=== PATIENT | female | born 1955 | race Caucasian/White ===

== ENCOUNTER 2017-02-05 11:49 | Emergency (ER) | payer MEDICAID ==
[~2017-02-05] VITALS: Ht 160 cm; Wt 55.0 kg
[~2017-02-05 11:49] MED LIST: Folic Acid PO; LEVE1000 PO; Multivitamins,Ther W-Minerals PO; ONDA4TAB5 PO; TOPI100T9 PO
[2017-02-05 14:59] LABS: ALANINE AMINOTRANSFERASE 72 IU/L (13-61); ANION GAP 13; CALCIUM 8.6 mg/dL (8.5-10.1); CARBON DIOXIDE 24 mEq/L (21-32); CHLORIDE 108 mEq/L (98-107); INDEX HEMOLYSI 3 (1-3); INDEX ICTERIC 1 (1-4); INDEX LIPEMIC 1 (1-3); TROPONIN I < 0.02 ng/mL (0.00-0.04); UREA NITROGEN BLOOD 15 mg/dL (7-21); eGFR > 60 mL/min (>60)
[2017-02-05 23:04] LABS: BASOPHILS % 0.7 % (0.0-2.0); EOSINOPHILS % 3.8 % (0.0-5.0); HEMATOCRIT. 33.8 % (36.0-48.0); HEMOGLOBIN. 11.5 g/dL (12.0-16.0); LYMPHOCYTES % 29.5 % (20.0-50.0); MEAN CORPUSCULAR HEMOGLOBIN 30.2 pg (28.0-32.0); MEAN CORPUSCULAR HGB CONC 33.9 g/dL (31.0-37.0); MEAN CORPUSCULAR VOLUME 89.2 fL (81.0-99.0); MONOCYTES % 9.2 % (2.0-8.0); NEUTROPHILS % 56.8 % (40.0-76.0); RED BLOOD CELL COUNT 3.79 mill/uL (4.2-5.4); RED CELL DISTRIBUTION WIDTH 15.4 % (11.6-14.6); WHITE BLOOD COUNT 3.5 x1000/uL (4.5-11.0)
[2017-02-06 02:29] LABS: MEAN PLATELET VOLUME 9.7 fl (7.4-10.4)
[2017-02-06 15:31] VITALS: BP 152/77
[2017-02-09 11:56] LABS: PLATELET 44 x1000/uL (130-400)
== END 2017-02-06 16:49 | disposition left against medical advice (07) ==
LOC: ER 12:01
DX: R55 Syncope and collapse (principal); F20.9 Schizophrenia, unspecified
CPT/HCPCS: 36415; 80053; 84484; 85025; 93005; 99285; Z7610

== ENCOUNTER 2017-07-02 18:42 | Inpatient (IN) | payer OTHER ==
[~2017-07-02] VITALS: Ht 157.5 cm; Wt 68.0 kg
[~2017-07-02 18:42] MED LIST changes: +TOP100 PO; -TOPI100T9 PO
[2017-07-02 19:16] LABS: BASOPHILS % 0.9 % (0.0-2.0); EOSINOPHILS % 3.2 % (0.0-5.0); HEMOGLOBIN. 10.2 g/dL (12.0-16.0); LYMPHOCYTES % 22.9 % (20.0-50.0); MEAN CORPUSCULAR HEMOGLOBIN 29.8 pg (28.0-32.0); MEAN CORPUSCULAR VOLUME 87.8 fL (81.0-99.0); MONOCYTES % 11.8 % (2.0-8.0); NEUTROPHILS % 61.2 % (40.0-76.0); RED BLOOD CELL COUNT 3.42 mill/uL (4.2-5.4); RED CELL DISTRIBUTION WIDTH 15.9 % (11.6-14.6)
[2017-07-02 19:23] LABS: INR 1.3; PLATELET 45 x1000/uL (130-400); PROTHROMBIN TIME 13.1 sec (9.4-11.6)
[2017-07-02 19:31] LABS: AMMONIA 112 uMol/L (<32)
[2017-07-02 19:34] LABS: CARBON DIOXIDE 25 mEq/L (21-32); CHLORIDE 111 mEq/L (98-107)
[2017-07-02 19:48] LABS: PLATELET ESTIMATE MARKEDLY DECREASED
[2017-07-02] MEDS ORDERED: LACTULOSE 20G/30ML UDC PO ONE (20:30)
[2017-07-02] MEDS ORDERED: IPRATROPIUM/ALBUTEROL 0.5-3(2.5)MG/3ML NEB INH PRN (22:30)
[2017-07-02] MEDS ORDERED: NA PHOS,M-B/NA PHOS,DI-BA ENEMA 118ML PR PRN (22:30)
[2017-07-02] MEDS ORDERED: NITROGLYCERIN 0.4MG TABLET SL SL PRN (22:30)
[2017-07-02] MEDS ORDERED: GUAIFENESIN 200MG/10ML SUGAR FREE UDC PO PRN (22:30)
[2017-07-02] MEDS ORDERED: CLONIDINE 0.1MG TABLET PO PRN (22:30)
[2017-07-02] MEDS ORDERED: ACETAMINOPHEN 325MG TABLET PO PRN (22:30)
[2017-07-02] MEDS ORDERED: ONDANSETRON HCL 4MG/2ML VIAL IV PRN (22:30)
[2017-07-02] MEDS ORDERED: DOCUSATE SODIUM 100MG CAPSULE PO PRN (22:30)
[2017-07-02] MEDS ORDERED: MAGNESIUM/ALUMINUM HYDROXIDE/SIMETHICONE 30ML UDC PO PRN (22:30)
[2017-07-02 22:53] LABS: ETHANOL BLOOD < 10 mg/dL; HDL CHOLESTEROL 35 mg/dL (40-59); LDL CHOLESTEROL 28 mg/dL (5-100)
[2017-07-02] MEDS: LACTULOSE 20G/30ML UDC PO SCH (23:49)
[2017-07-03 00:15] VITALS: BP 118/52
[2017-07-03] MEDS ORDERED: ASPI-986 PO (00:31)
[2017-07-03] MEDS ORDERED: SIMV10TA6 PO (00:31)
[2017-07-03] MEDS ORDERED: LACT10SO6 PO (00:31)
[2017-07-03] MEDS ORDERED: INFLUENZA VIRUS VACCINE 0.5ML SYR IM ONE (01:15)
[2017-07-03] MEDS ORDERED: MVI, ADULT NO.1 10 ML, FOLIC ACID 1 MG, THIAMINE HCL 100 MG in SODIUM CHLORIDE 0.9% 1,0... IV NR ×4 (02:00)
[2017-07-03 04:00] VITALS: BP 120/96
[2017-07-03] MEDS: LACTULOSE 20G/30ML UDC PO SCH ×3 (04:00→12:00)
[2017-07-03 08:00] VITALS: BP 103/41
[2017-07-03] MEDS ORDERED: FAMOTIDINE 20MG/2ML VIAL IV SCH (09:00)
[2017-07-03] MEDS ORDERED: POTASSIUM CHLORIDE 20MEQ TABLET SR PO SCH (09:00)
[2017-07-03] MEDS ORDERED: RIFAXIMIN 550 MG TABLET PO SCH (09:00)
[2017-07-03] MEDS ORDERED: LEVETIRACETAM 500MG TABLET PO SCH ×2 (09:00)
[2017-07-03] MEDS ORDERED: TOPIRAMATE 100MG TABLET PO SCH (09:00)
[2017-07-03 09:14] LABS: CREATINE KINASE 123 IU/L (26-192); CREATINE KINASE MB FRACTION 1.7 ng/mL (0.5-3.6); TROPONIN I < 0.02 ng/mL (0.00-0.04)
[2017-07-03 12:00] VITALS: BP 115/59
[2017-07-03 13:58] VITALS: BP 115/59
[2017-07-03 16:20] LABS: CREATINE KINASE 126 IU/L (26-192); CREATINE KINASE MB FRACTION 1.5 ng/mL (0.5-3.6); TROPONIN I < 0.02 ng/mL (0.00-0.04)
== END 2017-07-03 15:00 | DRG 53 ==
LOC: ER 19:12 → 6WST 22:05 → ENRESERV 22:10
PROVIDERS: ADMIT Internal Medicine; ATTEND Internal Medicine
DX: G40.909 Epilepsy, unspecified, not intractable, without status epilepticus (principal); K72.00 Acute and subacute hepatic failure without coma; D69.6 Thrombocytopenia, unspecified; D64.9 Anemia, unspecified; E11.9 Type 2 diabetes mellitus without complications; I10 Essential (primary) hypertension; K74.60 Unspecified cirrhosis of liver; J44.9 Chronic obstructive pulmonary disease, unspecified; I25.10 Atherosclerotic heart disease of native coronary artery without angina pectoris; L30.9 Dermatitis, unspecified; F31.9 Bipolar disorder, unspecified; Z82.49 Family history of ischemic heart disease and other diseases of the circulatory system
CPT/HCPCS: 36415; 70450; 76700; 80053; 80061; 82140; 82550; 82553; 82962; 83036; 84484; 85025; 85610; 90686; 99291; G0482; J3411; J3490; J7030

== ENCOUNTER 2017-08-13 11:56 | Emergency (ER) | payer OTHER ==
[~2017-08-13] VITALS: Ht 154.9 cm; Wt 78.0 kg
[~2017-08-13 11:56] MED LIST changes: +ASPI-986 PO; +LACT10SO6 PO; +SIMV10TA6 PO
[2017-08-13] MEDS ORDERED: ONDANSETRON HCL 4MG/2ML VIAL IV STA (12:21)
[2017-08-13] MEDS ORDERED: SODIUM CHLORIDE 0.9% 1,000 ML IV ONE (12:21)
[2017-08-13 12:44] LABS: EOSINOPHILS % 5.4 % (0.0-5.0); HEMATOCRIT. 32.4 % (36.0-48.0); HEMOGLOBIN. 11.2 g/dL (12.0-16.0); LYMPHOCYTES % 25.6 % (20.0-50.0); MEAN CORPUSCULAR HEMOGLOBIN 29.7 pg (28.0-32.0); MEAN CORPUSCULAR VOLUME 86.2 fL (81.0-99.0); MEAN PLATELET VOLUME 7.8 fl (7.4-10.4); MONOCYTES % 12.5 % (2.0-8.0); NEUTROPHILS % 55.5 % (40.0-76.0); PLATELET 54 x1000/uL (130-400); RED BLOOD CELL COUNT 3.76 mill/uL (4.2-5.4); RED CELL DISTRIBUTION WIDTH 16.1 % (11.6-14.6)
[2017-08-13] MEDS ORDERED: MORPHINE SULFATE 4 MG/ML CPJ (NOT FOR IM USE) IV ONE (12:45)
[2017-08-13] MEDS ORDERED: TETANUS, DIPHTHERIA, PERTUSSIS VAC/PF 0.5ML (>7YR OLD) IM ONE (12:45)
[2017-08-13 12:53] LABS: INR 1.1; PARTIAL THROMBOPLASTIN TIME 32.9 sec (23.4-31.0)
[2017-08-13 13:06] LABS: CARBON DIOXIDE 28 mEq/L (21-32); CHLORIDE 100 mEq/L (98-107); TROPONIN I < 0.02 ng/mL (0.00-0.04)
[2017-08-13 14:53] LABS: CLARITY URINE CLEAR (CLEAR); COLOR URINE YELLOW (YELLOW); GLUCOSE URINE NEGATIVE (NEGATIVE); KETONES URINE NEGATIVE (NEGATIVE); LEUKOCYTE ESTERASE URINE TRACE (NEGATIVE); NITRITE URINE NEGATIVE (NEGATIVE); OCCULT BLOOD URINE NEGATIVE (NEGATIVE); PROTEIN URINE NEGATIVE (NEGATIVE); SPECIFIC GRAVITY URINE 1.009 (1.005-1.030)
[2017-08-13 16:25] VITALS: BP 131/73
== END 2017-08-13 17:08 | disposition home or self-care (01) ==
LOC: ER 13:21
DX: S09.90XA Unspecified injury of head, initial encounter (principal); R19.7 Diarrhea, unspecified; R11.10 Vomiting, unspecified; J44.9 Chronic obstructive pulmonary disease, unspecified; I25.10 Atherosclerotic heart disease of native coronary artery without angina pectoris; I10 Essential (primary) hypertension; E11.9 Type 2 diabetes mellitus without complications; F31.9 Bipolar disorder, unspecified; F17.200 Nicotine dependence, unspecified, uncomplicated; Z79.82 Long term (current) use of aspirin; W10.9XXA Fall (on) (from) unspecified stairs and steps, initial encounter; Y93.02 Activity, running; Y92.89 Other specified places as the place of occurrence of the external cause; Y99.8 Other external cause status
CPT/HCPCS: 36415; 70450; 73660; 80053; 81001; 83605; 83690; 84484; 85025; 85610; 85730; 90471; 90715; 96361; 96374; 96375; 99285; J2270; J2405; J7030; Z7610

== ENCOUNTER 2017-10-05 09:45 | Inpatient (IN) | payer OTHER ==
[~2017-10-05] VITALS: Ht 160 cm; Wt 90.8 kg
[2017-10-05 13:46] LABS: BASOPHILS % 1.1 % (0.0-2.0); EOSINOPHILS % 3.1 % (0.0-5.0); HEMATOCRIT. 31.4 % (36.0-48.0); HEMOGLOBIN. 10.5 g/dL (12.0-16.0); MEAN CORPUSCULAR HEMOGLOBIN 29.2 pg (28.0-32.0); MEAN CORPUSCULAR VOLUME 87.7 fL (81.0-99.0); MEAN PLATELET VOLUME 8.7 fl (7.4-10.4); MONOCYTES % 10.3 % (2.0-8.0); NEUTROPHILS % 62.5 % (40.0-76.0); PLATELET 78 x1000/uL (130-400); RED BLOOD CELL COUNT 3.58 mill/uL (4.2-5.4); RED CELL DISTRIBUTION WIDTH 16.7 % (11.6-14.6)
[2017-10-05 13:55] LABS: INR 1.2; PROTHROMBIN TIME 12.5 sec (9.4-11.6)
[2017-10-05 14:08] LABS: CARBON DIOXIDE 26 mEq/L (21-32); CHLORIDE 105 mEq/L (98-107); ETHANOL BLOOD < 10 mg/dL; TROPONIN I 0.02 ng/mL (0.00-0.04)
[2017-10-05] MEDS ORDERED: SODIUM CHLORIDE 0.9% 1,000 ML IV ONE (14:17)
[2017-10-05] MEDS ORDERED: METHYLPREDNISOLONE SOD SUCC 125 MG/2 ML VIAL IV STA (14:17)
[2017-10-05] MEDS ORDERED: LEVOFLOXACIN 750MG PREMIX 150 ML IV ONE (14:30)
[2017-10-05] MEDS ORDERED: LEVETIRACETAM 500MG PREMIX 100 ML IV ONE (14:30)
[2017-10-05] MEDS ORDERED: LORAZEPAM 2MG/ML CPJ IV ONE ×2 (14:30→19:00)
[2017-10-05] MEDS ORDERED: IPRATROPIUM/ALBUTEROL 0.5-3(2.5)MG/3ML NEB HHN ONE (14:30)
[2017-10-05 14:51] LABS: BG BASE EXCESS -3.2 mmol/L (-2.0-2.0); BG CARBOXYHEMOGLOBIN 0.1 % (0.5-1.5); BG DEOXYHEMOGLOBIN 1.3 % (0.0-5.0); BG FRACTION INSPIRED OXYGEN 60; BG HCO3 ACT 19.6 mmol/L (22.0-26.0); BG METHEMOGLOBIN 0.4 % (0.0-1.5); BG OXYGEN SATURATION 98.7 % (92.0-98.5); BG OXYHEMOGLOBIN 98.2 % (94.0-97.0); BG PCO2 27.8 mmHg (35.0-45.0); BG PH 7.465 (7.350-7.450); BG PO2 156.2 mmHg (75.0-100.0); BG SAMPLE SITE LEFT RADIAL; BG TOTAL HEMOGLOBIN 10.9 g/dL (12.0-18.0)
[2017-10-05] MEDS ORDERED: DIPHENHYDRAMINE 50MG/ML VIAL IV ONE (15:45)
[2017-10-05 16:27] LABS: CLARITY URINE CLEAR (CLEAR); COLOR URINE YELLOW (YELLOW); KETONES URINE NEGATIVE (NEGATIVE); LEUKOCYTE ESTERASE URINE NEGATIVE (NEGATIVE); NITRITE URINE NEGATIVE (NEGATIVE); OCCULT BLOOD URINE NEGATIVE (NEGATIVE); PROTEIN URINE NEGATIVE (NEGATIVE); SPECIFIC GRAVITY URINE 1.009 (1.005-1.030)
[2017-10-05] MEDS ORDERED: LEVOFLOXACIN 500MG PREMIX 100 ML IV SCH (16:30)
[2017-10-05] MEDS ORDERED: METHYLPREDNISOLONE SOD SUCC 40 MG/ML VIAL IV SCH (16:30)
[2017-10-05] MEDS ORDERED: LORAZEPAM 2MG/ML CPJ IV PRN (16:30)
[2017-10-05] MEDS ORDERED: IPRATROPIUM/ALBUTEROL 0.5-3(2.5)MG/3ML NEB HHN PRN (16:30)
[2017-10-05 17:12] LABS: *AMPHETAMINES SCREEN URINE NEGATIVE (NEGATIVE); *BARBITURATES SCREEN URINE NEGATIVE (NEGATIVE); *BENZODIAZEPINES SCREEN URINE NEGATIVE (NEGATIVE); *COCAINE SCREEN URINE NEGATIVE (NEGATIVE); CANNABINOID URINE SCREEN NEGATIVE (NEGATIVE); METHADONE URINE SCREEN NEGATIVE (NEGATIVE); OPIATES URINE SCREEN NEGATIVE (NEGATIVE); PHENCYCLIDINE URINE SCREEN NEGATIVE (NEGATIVE)
[2017-10-05 20:25] VITALS: BP 120/45
[2017-10-05 20:50] LABS: AMMONIA 64 uMol/L (<32)
[2017-10-05 20:57] LABS: CREATINE KINASE 88 IU/L (26-192); ETHANOL BLOOD < 10 mg/dL
[2017-10-05 20:58] LABS: CARBAMAZEPINE < 0.5 ug/mL (4-12); PHENOBARBITAL < 2.1 ug/mL (15.0-40.0)
[2017-10-05 21:00] VITALS: BP 120/45
[2017-10-05 21:00] LABS: VALPROIC ACID < 3.0 ug/mL (50-100)
[2017-10-05 23:50] VITALS: BP 114/51
[2017-10-06] MEDS ORDERED: IPRATROPIUM/ALBUTEROL 0.5-3(2.5)MG/3ML NEB HHN ONE ×2 (00:15→04:00)
[2017-10-06] MEDS ORDERED: ONDA4TAB5 PO (01:14)
[2017-10-06] MEDS ORDERED: LEVE1000 PO (01:14)
[2017-10-06] MEDS: METHYLPREDNISOLONE SOD SUCC 40 MG/ML VIAL IV SCH ×3 (02:00→18:12)
[2017-10-06 04:00] VITALS: BP 103/46
[2017-10-06] MEDS: IPRATROPIUM/ALBUTEROL 0.5-3(2.5)MG/3ML NEB HHN SCH ×5 (04:00→20:57)
[2017-10-06] MEDS: LORAZEPAM 2MG/ML CPJ IV PRN ×2 (05:58→14:35)
[2017-10-06 08:00] VITALS: BP 126/39
[2017-10-06] MEDS ORDERED: LEVETIRACETAM 500MG TABLET PO SCH (09:00)
[2017-10-06] MEDS: TOPIRAMATE 100MG TABLET PO SCH ×2 (09:39→18:12)
[2017-10-06] MEDS: BUDESONIDE 0.5MG/2ML NEB HHN SCH ×2 (10:10→20:54)
[2017-10-06] MEDS ORDERED: LACTULOSE 20G/30ML UDC PO NR (11:00)
[2017-10-06] MEDS: HYDROCODONE/ACETAMINOPHEN 5/325MG TABLET PO PRN (11:17)
[2017-10-06 12:00] VITALS: BP 117/49
[2017-10-06] MEDS ORDERED: SODIUM BICARBONATE 4% (2.4MEQ) 5ML VIAL IV ONE (13:34)
[2017-10-06] MEDS ORDERED: LIDOCAINE HCL 1% 20ML VIAL (Pyxis) INJ ONE (13:34)
[2017-10-06] MEDS: LACTULOSE 20G/30ML UDC PO SCH ×2 (14:33→21:31)
[2017-10-06] MEDS: NICOTINE 14MG PATCH TD SCH (14:34)
[2017-10-06] MEDS: MORPHINE SULFATE 4 MG/ML CPJ (NOT FOR IM USE) IV PRN ×2 (14:35→18:12)
[2017-10-06] MEDS: LEVOFLOXACIN 500MG PREMIX 100 ML IV SCH (15:58)
[2017-10-06 16:00] VITALS: BP 124/56
[2017-10-06 20:00] VITALS: BP 138/79
[2017-10-06] MEDS: QUETIAPINE FUMARATE 25MG TABLET PO SCH (21:29)
[2017-10-06] MEDS: LEVETIRACETAM 500MG TABLET PO SCH (21:30)
[2017-10-07] VITALS (7 sets, daily range): BP systolic 96–131; BP diastolic 47–76
[2017-10-07] MEDS: IPRATROPIUM/ALBUTEROL 0.5-3(2.5)MG/3ML NEB HHN SCH ×5 (01:02→16:29)
[2017-10-07] MEDS: METHYLPREDNISOLONE SOD SUCC 40 MG/ML VIAL IV SCH ×3 (01:13→21:28)
[2017-10-07] MEDS: LACTULOSE 20G/30ML UDC PO SCH ×3 (05:21→21:29)
[2017-10-07] MEDS: BUDESONIDE 0.5MG/2ML NEB HHN SCH ×2 (08:16→20:01)
[2017-10-07] MEDS: LEVETIRACETAM 500MG TABLET PO SCH ×2 (08:42→21:28)
[2017-10-07] MEDS: LORAZEPAM 2MG/ML CPJ IV PRN (08:43)
[2017-10-07] MEDS: QUETIAPINE FUMARATE 25MG TABLET PO SCH ×2 (08:43→21:28)
[2017-10-07] MEDS: MORPHINE SULFATE 4 MG/ML CPJ (NOT FOR IM USE) IV PRN ×3 (08:43→18:12)
[2017-10-07] MEDS: NICOTINE 14MG PATCH TD SCH (08:49)
[2017-10-07] MEDS: TOPIRAMATE 100MG TABLET PO SCH ×2 (09:50→18:10)
[2017-10-07 10:59] LABS: BASOPHILS % 0.1 % (0.0-2.0); EOSINOPHILS % 0.1 % (0.0-5.0); HEMATOCRIT. 28.9 % (36.0-48.0); HEMOGLOBIN. 9.3 g/dL (12.0-16.0); LYMPHOCYTES % 10.5 % (20.0-50.0); MEAN CORPUSCULAR HEMOGLOBIN 28.9 pg (28.0-32.0); MEAN CORPUSCULAR VOLUME 89.6 fL (81.0-99.0); MONOCYTES % 6.4 % (2.0-8.0); NEUTROPHILS % 82.9 % (40.0-76.0); PLATELET 52 x1000/uL (130-400); RED BLOOD CELL COUNT 3.22 mill/uL (4.2-5.4); RED CELL DISTRIBUTION WIDTH 16.5 % (11.6-14.6)
[2017-10-07 11:09] LABS: AMMONIA 29 uMol/L (<32)
[2017-10-07 11:23] LABS: CARBON DIOXIDE 23 mEq/L (21-32); CHLORIDE 111 mEq/L (98-107)
[2017-10-07] MEDS ORDERED: DEXTROSE 50% WATER 50ML SYRINGE IV PRN (11:30)
[2017-10-07 12:06] LABS: HEPATITIS B SURFACE ANTIGEN NEGATIVE
[2017-10-07 12:32] LABS: HEPATITIS B CORE AB IGM NEGATIVE
[2017-10-07 12:33] LABS: HEPATITIS A AB IGM NEGATIVE (NEGATIVE)
[2017-10-07] MEDS: BLOOD SUGAR DIAGNOSTIC STRIP TEST SCH ×3 (12:40→21:28)
[2017-10-07] MEDS: INSULIN LISPRO 100 UNITS/ML SUBCUT SCH ×3 (13:10→21:00)
[2017-10-07] MEDS: LEVOFLOXACIN 500MG PREMIX 100 ML IV SCH (18:09)
[2017-10-07] MEDS ORDERED: TOPIRAMATE 100MG TABLET PO SCH (21:00)
[2017-10-08] MEDS: IPRATROPIUM/ALBUTEROL 0.5-3(2.5)MG/3ML NEB HHN SCH ×6 (00:48→20:15)
[2017-10-08 04:22] VITALS: BP 96/45
[2017-10-08 05:48] VITALS: BP 104/53
[2017-10-08] MEDS: LACTULOSE 20G/30ML UDC PO SCH ×3 (06:00→21:29)
[2017-10-08] MEDS: INSULIN LISPRO 100 UNITS/ML SUBCUT SCH ×4 (07:10→21:00)
[2017-10-08] MEDS: BLOOD SUGAR DIAGNOSTIC STRIP TEST SCH ×4 (07:10→21:28)
[2017-10-08] MEDS: BUDESONIDE 0.5MG/2ML NEB HHN SCH ×2 (07:38→20:14)
[2017-10-08] MEDS: TOPIRAMATE 100MG TABLET PO SCH ×2 (08:33→16:20)
[2017-10-08] MEDS: LEVETIRACETAM 500MG TABLET PO SCH ×2 (08:33→20:12)
[2017-10-08] MEDS: NICOTINE 14MG PATCH TD SCH (08:34)
[2017-10-08] MEDS: QUETIAPINE FUMARATE 25MG TABLET PO SCH ×2 (08:34→20:12)
[2017-10-08] MEDS: METHYLPREDNISOLONE SOD SUCC 40 MG/ML VIAL IV SCH ×2 (08:34→20:12)
[2017-10-08] MEDS: HYDROCODONE/ACETAMINOPHEN 5/325MG TABLET PO PRN ×3 (08:47→20:55)
[2017-10-08] MEDS: LORAZEPAM 2MG/ML CPJ IV PRN ×2 (12:29→18:45)
[2017-10-08] MEDS: MORPHINE SULFATE 4 MG/ML CPJ (NOT FOR IM USE) IV PRN ×2 (14:25→21:25)
[2017-10-08] MEDS: LEVOFLOXACIN 500MG PREMIX 100 ML IV SCH (15:34)
[2017-10-08 16:00] VITALS: BP 135/57
[2017-10-08] MEDS ORDERED: DIPHENHYDRAMINE 50MG/ML VIAL IV PRN (19:00)
[2017-10-08 20:00] VITALS: BP 133/68
[2017-10-08 23:55] VITALS: BP 122/64
[2017-10-09] MEDS: IPRATROPIUM/ALBUTEROL 0.5-3(2.5)MG/3ML NEB HHN SCH ×6 (00:08→21:00)
[2017-10-09 04:00] VITALS: BP 119/65
[2017-10-09] MEDS: MORPHINE SULFATE 4 MG/ML CPJ (NOT FOR IM USE) IV PRN ×3 (05:54→17:09)
[2017-10-09] MEDS: LACTULOSE 20G/30ML UDC PO SCH ×3 (05:59→20:07)
[2017-10-09 06:37] LABS: HEMATOCRIT. 28.7 % (36.0-48.0); HEMOGLOBIN. 9.5 g/dL (12.0-16.0); MEAN CORPUSCULAR HEMOGLOBIN 29.3 pg (28.0-32.0); MEAN CORPUSCULAR VOLUME 88.5 fL (81.0-99.0); MEAN PLATELET VOLUME 8.5 fl (7.4-10.4); RED BLOOD CELL COUNT 3.24 mill/uL (4.2-5.4); RED CELL DISTRIBUTION WIDTH 16.4 % (11.6-14.6)
[2017-10-09 07:00] LABS: PLATELET 45 x1000/uL (130-400)
[2017-10-09] MEDS: BUDESONIDE 0.5MG/2ML NEB HHN SCH (07:38)
[2017-10-09 07:44] LABS: CARBON DIOXIDE 24 mEq/L (21-32); CHLORIDE 111 mEq/L (98-107)
[2017-10-09 08:00] VITALS: BP 104/45
[2017-10-09] MEDS: INSULIN LISPRO 100 UNITS/ML SUBCUT SCH ×4 (08:35→20:07)
[2017-10-09] MEDS: BLOOD SUGAR DIAGNOSTIC STRIP TEST SCH ×4 (08:36→19:57)
[2017-10-09] MEDS: METHYLPREDNISOLONE SOD SUCC 40 MG/ML VIAL IV SCH ×2 (08:36→20:07)
[2017-10-09] MEDS: NICOTINE 14MG PATCH TD SCH (08:37)
[2017-10-09] MEDS: LEVETIRACETAM 500MG TABLET PO SCH ×2 (08:37→20:07)
[2017-10-09] MEDS: QUETIAPINE FUMARATE 25MG TABLET PO SCH ×2 (08:37→20:07)
[2017-10-09] MEDS: TOPIRAMATE 100MG TABLET PO SCH ×2 (08:37→17:07)
[2017-10-09 12:00] VITALS: BP 109/49
[2017-10-09 13:02] LABS: PLATELET ESTIMATE MARKEDLY DECREASED
[2017-10-09] MEDS: LORAZEPAM 2MG/ML CPJ IV PRN ×4 (13:35→19:43)
[2017-10-09] MEDS: LEVOFLOXACIN 500MG PREMIX 100 ML IV SCH (15:02)
[2017-10-09 16:00] VITALS: BP 111/51
[2017-10-09 20:00] VITALS: BP 114/64
[2017-10-10] VITALS: BP 114/56
[2017-10-10] MEDS: IPRATROPIUM/ALBUTEROL 0.5-3(2.5)MG/3ML NEB HHN SCH ×6 (00:50→22:28)
[2017-10-10 04:00] VITALS: BP 109/62
[2017-10-10] MEDS: LACTULOSE 20G/30ML UDC PO SCH ×3 (05:08→20:12)
[2017-10-10] MEDS: BLOOD SUGAR DIAGNOSTIC STRIP TEST SCH ×4 (05:37→20:12)
[2017-10-10] MEDS: MORPHINE SULFATE 4 MG/ML CPJ (NOT FOR IM USE) IV PRN ×3 (05:37→16:56)
[2017-10-10 08:00] VITALS: BP 104/55
[2017-10-10] MEDS: QUETIAPINE FUMARATE 25MG TABLET PO SCH ×2 (08:11→20:08)
[2017-10-10] MEDS: METHYLPREDNISOLONE SOD SUCC 40 MG/ML VIAL IV SCH (08:11)
[2017-10-10] MEDS: TOPIRAMATE 100MG TABLET PO SCH ×2 (08:11→16:52)
[2017-10-10] MEDS: NICOTINE 14MG PATCH TD SCH (08:12)
[2017-10-10] MEDS: INSULIN LISPRO 100 UNITS/ML SUBCUT SCH ×4 (08:16→20:17)
[2017-10-10] MEDS: LEVETIRACETAM 500MG TABLET PO SCH ×2 (08:17→20:08)
[2017-10-10] MEDS: LORAZEPAM 2MG/ML CPJ IV PRN ×2 (08:50→15:16)
[2017-10-10 12:00] VITALS: BP 107/53
[2017-10-10 12:38] LABS: HEMATOCRIT. 28.1 % (36.0-48.0); HEMOGLOBIN. 9.3 g/dL (12.0-16.0); MEAN CORPUSCULAR HEMOGLOBIN 29.1 pg (28.0-32.0); MEAN CORPUSCULAR VOLUME 88.3 fL (81.0-99.0); MEAN PLATELET VOLUME 9.1 fl (7.4-10.4); RED BLOOD CELL COUNT 3.19 mill/uL (4.2-5.4); RED CELL DISTRIBUTION WIDTH 16.2 % (11.6-14.6)
[2017-10-10 12:43] LABS: PLATELET 40 x1000/uL (130-400)
[2017-10-10] MEDS ORDERED: LEVE1000 PO (13:46)
[2017-10-10] MEDS ORDERED: LACT10SO6 PO (13:46)
[2017-10-10 14:04] LABS: PLATELET ESTIMATE DECREASED
[2017-10-10] MEDS: LEVOFLOXACIN 500MG TABLET PO SCH (15:07)
[2017-10-10 16:00] VITALS: BP 116/59
[2017-10-10 20:00] VITALS: BP 132/60
[2017-10-11] VITALS: BP 128/60
[2017-10-11 04:00] VITALS: BP 101/51
[2017-10-11] MEDS: LACTULOSE 20G/30ML UDC PO SCH ×2 (05:12→14:00)
[2017-10-11] MEDS: IPRATROPIUM/ALBUTEROL 0.5-3(2.5)MG/3ML NEB HHN SCH ×4 (05:25→11:30)
[2017-10-11] MEDS: BLOOD SUGAR DIAGNOSTIC STRIP TEST SCH ×2 (05:51→12:40)
[2017-10-11] MEDS: MORPHINE SULFATE 4 MG/ML CPJ (NOT FOR IM USE) IV PRN ×2 (05:51→08:41)
[2017-10-11 08:00] VITALS: BP 108/54
[2017-10-11] MEDS: INSULIN LISPRO 100 UNITS/ML SUBCUT SCH ×2 (08:10→13:10)
[2017-10-11] MEDS: TOPIRAMATE 100MG TABLET PO SCH (08:39)
[2017-10-11] MEDS: LEVETIRACETAM 500MG TABLET PO SCH (08:39)
[2017-10-11] MEDS: NICOTINE 14MG PATCH TD SCH (08:40)
[2017-10-11] MEDS: QUETIAPINE FUMARATE 25MG TABLET PO SCH (08:40)
[2017-10-11] MEDS ORDERED: PREDNISONE 20MG TABLET PO SCH (09:00)
[2017-10-11] MEDS: LEVOFLOXACIN 500MG TABLET PO SCH (11:38)
[2017-10-11 11:53] VITALS: BP 96/65
[2017-10-11 12:00] VITALS: BP 96/65
[2017-10-11] MEDS ORDERED: ALBU6.7H INH (12:47)
== END 2017-10-11 14:45 | disposition home or self-care (01) | DRG 53 ==
LOC: ER 10:49 → 7WST 15:54 → ENRESERV 19:25
PROVIDERS: ADMIT Internal Medicine; ATTEND Internal Medicine
PROC: 02HV33Z Insertion of Infusion Device into Superior Vena Cava, Percutaneous Approach (ICD-10-PCS; 2017-10-06)
PROC: B548ZZA Ultrasonography of Superior Vena Cava, Guidance (ICD-10-PCS; 2017-10-06)
PROC: B5181ZA Fluoroscopy of Superior Vena Cava using Low Osmolar Contrast, Guidance (ICD-10-PCS; 2017-10-06)
PROC: 4A00X4Z Measurement of Central Nervous Electrical Activity, External Approach (ICD-10-PCS; principal; 2017-10-07)
DX: G40.909 Epilepsy, unspecified, not intractable, without status epilepticus (principal); J96.00 Acute respiratory failure, unspecified whether with hypoxia or hypercapnia; K72.00 Acute and subacute hepatic failure without coma; D61.818 Other pancytopenia; J44.1 Chronic obstructive pulmonary disease with (acute) exacerbation; E44.1 Mild protein-calorie malnutrition; D68.9 Coagulation defect, unspecified; R16.1 Splenomegaly, not elsewhere classified; B19.20 Unspecified viral hepatitis C without hepatic coma; E11.9 Type 2 diabetes mellitus without complications; K74.60 Unspecified cirrhosis of liver; L30.9 Dermatitis, unspecified; G43.909 Migraine, unspecified, not intractable, without status migrainosus; E78.00 Pure hypercholesterolemia, unspecified; E66.9 Obesity, unspecified; F17.210 Nicotine dependence, cigarettes, uncomplicated; F32.9 Major depressive disorder, single episode, unspecified; I10 Essential (primary) hypertension; I25.10 Atherosclerotic heart disease of native coronary artery without angina pectoris; Z82.49 Family history of ischemic heart disease and other diseases of the circulatory system; Z91.19 Patient's noncompliance with other medical treatment and regimen; Z95.810 Presence of automatic (implantable) cardiac defibrillator; Z68.35 Body mass index [BMI] 35.0-35.9, adult; Z79.82 Long term (current) use of aspirin; Z79.899 Other long term (current) drug therapy; Z71.6 Tobacco abuse counseling
CPT/HCPCS: 36415; 36569; 36600; 70450; 71045; 76937; 77001; 80048; 80053; 80156; 80165; 80184; 80185; 80305; 81003; 82140; 82375; 82550; 82805; 82962; 83605; 83880; 84443; 84484; 85025; 85610; 86705; 86709; 86803; 87040; 87086; 87340; 93005; 93970; 94640; 96365; 96366; 96375; 96376; 97162; 99285; C1725; G0482; J1200; J1815; J1953; J1956; J2060; J2270; J2920; J2930; J3490; J7030; J7040; J7050; J7512; J7620; J7626